=== PATIENT | female | born 1995 | race Hispanic/Latino ===

== ENCOUNTER 2021-07-30 07:26 | Day surgery (SDC) | payer BC ==
[2021-07-29 10:31] VITALS: BP 118/76
[2021-07-30] VITALS (18 sets, daily range): BP systolic 99–119; BP diastolic 49–76
[~2021-07-30] VITALS: Ht 152.4 cm; Wt 81.9 kg
[~2021-07-30 07:26] MED LIST: ETAN25SY SQ
[2021-07-30] MEDS ORDERED: LACTATED RINGERS 1000ML 1,000 ML IV ONE (08:23)
[2021-07-30 08:58] LABS: BASOPHILS % (AUTO) 0.4 % (0.0-5.0); EOSINOPHILS % (AUTO) 2.5 % (0.0-8.0); HEMATOCRIT 42.6 % (36-48); LYMPHOCYTES % (AUTO) 25.7 % (21.0-51.0); MEAN CORPUSCULAR HGB CONC 33.3 g/dL (32.0-36.0); MEAN CORPUSCULAR VOLUME 87.1 fL (79-99); PLATELET COUNT (AUTO) 299 K/uL (130-400); RED BLOOD CELL COUNT(AUTO) 4.89 MIL/uL (4.00-5.50); RED CELL DISTRIBUTION WIDTH 12.7 % (11.0-15.5); WHITE BLOOD COUNT (AUTO) 7.7 K/uL (4.8-10.8)
[2021-07-30] MEDS ORDERED: MIDAZOLAM HCL 1 MG/ML 2ML VIAL ONE (10:09)
[2021-07-30] MEDS ORDERED: ONDANSETRON 4MG INJ ONE ×2 (10:09→11:40)
[2021-07-30] MEDS ORDERED: FENTANYL CITRATE PF 50 MCG/1 ML 2ML VIAL ONE ×2 (10:09→11:03)
[2021-07-30] MEDS ORDERED: PROPOFOL 10 MG/ML 20ML VIAL IV ONE (10:09)
[2021-07-30] MEDS ORDERED: MEPERIDINE-PF 25 MG/ML SYG ONE (10:09)
[2021-07-30] MEDS ORDERED: ROCURONIUM 10MG/1ML SYR 10 MG/ML ML ONE (10:16)
[2021-07-30] MEDS ORDERED: KETOROLAC 30MG VIAL (30MG/ML) ONE (10:59)
[2021-07-30] MEDS ORDERED: LIDOCAINE HCL 2% JELLY 5 ML TP ONE (11:05)
[2021-07-30] MEDS ORDERED: MORPHINE 2 MG SYG ONE (11:41)
[2021-07-30] MEDS ORDERED: ACETAMINOPHEN 500 MG TABLET ONE (12:36)
== END 2021-07-30 13:30 | disposition home or self-care (01) ==
LOC: DAH 07:26
PROVIDERS: ATTEND Obstetrics & Gynecology
DX: N93.9 Abnormal uterine and vaginal bleeding, unspecified (principal); R93.89 Abnormal findings on diagnostic imaging of other specified body structures; M06.9 Rheumatoid arthritis, unspecified; E66.01 Morbid (severe) obesity due to excess calories; Z79.899 Other long term (current) drug therapy
CPT/HCPCS: 36415 ×2; 58558; 58579; 84703; 85025; 87635; A4335; A4351; A4355; A6260; C9803; J1885; J2175; J2250; J2405 ×2; J2704; J3010 ×2; J7120